=== PATIENT | female | born 1930 | race Caucasian/White ===

== ENCOUNTER 2017-12-03 09:04 | Emergency (ER) | payer OTHER ==
[2017-12-03 09:08] VITALS: BMI 29.2
--- NOTE | 2017-12-03 09:11 | PDOC ---
History of Present Illness - General Chief Complaint: Rash Stated Complaint: RASH Time Seen by Provider: 12/03/17 09:11 History Source: Patient Exam Limitations: No Limitations - History of Present Illness Initial Comments: 12/03/17 09:11 Ms Hinton is an 87myo F who presents to the ER with a complaint of rash This Rash has been present for the past 4 days. She first noticed it on her left forearm. Since then she's noticed that on her chin, lip, right cheek. No difficulty swallowing, no wheezing. No shortness of breath. Patient has a prior history of ALLERGIC reaction to penicillin, she did not take this today. She has no ALLERGIES to foods Patient has used no new soaps, detergent, lotions. The only new food she can recall is Tong and Cheetos approximately 5-6 days ago PMH-htn, hyperparathyroid dz, congenital heart defect, tia, HLP PSH- R knee replacement Social- . Denies alcohol, rec drugs, tobacco Famhx- Dad- Leukemia. Mom- Lung cancer Social history - denies tobacco use, drug use GENERAL/CONSTITUTIONAL: No: fever, chills, weakness, loss of appetite. HEAD, EYES, EARS, NOSE AND THROAT: No: change in vision, ear pain, discharge, sore throat, throat swelling. CARDIOVASCULAR: No: chest pain, lightheadedness, palpitations, syncope RESPIRATORY: No: cough, shortness of breath, wheezing, hemoptysis, stridor. GASTROINTESTINAL: No: nausea, vomiting, diarrhea, abdominal cramping, rectal bleeding, constipation. GENITOURINARY: No: dysuria, hematuria, frequency, urgency, flank pain. MUSCULOSKELETAL: No: back pain, neck pain, joint pain, muscle swelling or pain SKIN : Yesd: rash No: lesions, pallor, rash or easy bruising. NEUROLOGIC: No: headache, vertigo, paresthesias, weakness ENDOCRINE: No: unexplained weight gain or loss HEMATOLOGIC/LYMPHATIC: No: anemia, easy bleeding, swelling nodes. GENERAL: The patient is in no acute distress. HEAD: Normal with no signs of trauma. EYES: PERRLA, EOMI, sclera anicteric, conjunctiva clear. ENT:Uvula midline and non edematous Moist mucous membranes. NECK: Normal range of motion, supple without lymphadenopathy, JVD, or masses. LUNGS: Breath sounds equal, clear to auscultation bilaterally. No wheezes HEART:Regular rate and rhythm, normal S1 and S2 without murmur, rub or gallop. ABDOMEN: Soft, nontender, normoactive bowel sounds. EXTREMITIES: Normal range of motion, no edema. No clubbing or cyanosis. No erythema, or tenderness. NEUROLOGICAL: Cranial nerves II through XII grossly intact. Normal speech. No focal neurological deficits. MUSCULOSKELETAL: Back non-tender to palpation, no CVA tenderness SKIN: Urticarial lesions noted chin and lower lip, right cheek left volar surface of the forearm No pustules No vesicles 12/03/17 09:12 Past History - Past Medical History Allergies/Adverse Reactions: Allergies Allergy/AdvReac Type Severity Reaction Status Date / Time Penicillins Allergy Verified 12/03/17 09:12 Home Medications: Ambulatory Orders Amlodipine Besylate [Norvasc -] 5 mg PO DAILY 08/01/14 Atorvastatin Ca [Lipitor] 20 mg PO HS 08/01/14 Metoprolol Succinate [Toprol XL -] 25 mg PO BID 08/01/14 Cholecalciferol (Vitamin D3) [Vitamin D3] 2,000 unit PO DAILY tablet 11/13/15 Cardiac Disorders: Yes CVA: Yes (TIA 1994) COPD: No DVT: No HTN: Yes Thyroid Disease: Yes - Suicide/Smoking/Psychosocial Hx Smoking History: Never smoked Have you smoked in the past 12 months: No Hx Alcohol Use: No Drug/Substance Use Hx: No Substance Use Type: None *Physical Exam - Vital Signs Last Vital Signs Temp Pulse Resp BP Pulse Ox 0/0 12/03/17 09:05 Medical Decision Making - Medical Decision Making 12/03/17 09:16 Pt presents with what appears to be an urticarial rash Has not taken Benadryl by mouth only topical benadryl Recommend: Medrol dose pack Benadryl Follow up with Security Team Lead and PMD *DC/Admit/Observation/Transfer Diagnosis at time of Disposition: Allergic reaction Qualifiers: Encounter type: initial encounter Qualified Code(s): T78.40XA - Allergy, unspecified, initial encounter - Discharge Dispostion Disposition: HOME Condition at time of disposition: Stable Decision to Admit order: No - Referrals Referrals: Aguila Lisa MD [Staff Physician] - - Patient Instructions Printed Discharge Instructions: DI for General Allergic Reactions Additional Instructions: Thank you for coming into the emergency department today. Please be sure to follow up with the insurance agency manager ([facility]) (, any primary care physician. You can take Benadryl 12.5 mg every 8 hours for itching. Please note, you may see rashes in other parts of your body Please take Medrol Dosepak as prescribed. Please monitor for difficulty swallowing, difficulty breathing, any progression that concerns you. Please feel free to return to the emergency department for any other concerns or complaints. For now, please avoid mangoes and Cheetos - Post Discharge Activity
[2017-12-03 09:16] VITALS: BP 140/96; PULSE 79; TEMP 98
== END 2017-12-03 09:35 | disposition home or self-care (01) ==
LOC: FER 09:04
DX: T78.40XA Allergy, unspecified, initial encounter (principal); I10 Essential (primary) hypertension; E78.5 Hyperlipidemia, unspecified; Z86.73 Personal history of transient ischemic attack (TIA), and cerebral infarction without residual deficits
CPT/HCPCS: 99281-25

== ENCOUNTER 2018-05-07 08:28 | Emergency (ER) | payer OTHER ==
[2018-05-07 08:45] VITALS: BP 150/102; PULSE 96; TEMP 98.3; BMI 30.2
[2018-05-07] MEDS ORDERED: ACETAMINOPHEN 1000 MG/100 ML VIAL (NON FORMULARY) IVPB ONE (08:49)
[2018-05-07] MEDS ORDERED: ACETAMINOPHEN INJECTION 100 ML IVPB ONE (08:58)
--- NOTE | 2018-05-07 09:32 | PDOC ---
History of Present Illness - General Chief Complaint: Pain Stated Complaint: RIGHT SHOULDER PAIN BANGED INTO DOOR JAM Time Seen by Provider: 05/07/18 08:38 - History of Present Illness Initial Comments: 05/07/18 09:39 88 years old past medical history significant for right total knee replacement, hypertension, hyperparathyroidism, PFO, TIA on Coumadin, hyperlipidemia normally ambulates with a walker was in the bathroom on [address] did not have her walker was unsteady and fell forward into the bathroom door. There was no new or different dizziness on headache chest pain shortness of breath she simply did not have her walker with her. Patient denies fever chills chest pain shortness of breath nausea vomiting diarrhea rashes bone spurs is new or different urinary symptoms. Past History - Past Medical History Allergies/Adverse Reactions: Allergies Allergy/AdvReac Type Severity Reaction Status Date / Time Penicillins Allergy Verified 05/07/18 08:31 Home Medications: Ambulatory Orders Amlodipine Besylate [Norvasc -] 5 mg PO DAILY 08/01/14 Metoprolol Succinate [Toprol XL -] 50 mg PO DAILY 08/01/14 Atorvastatin Ca [Lipitor] 20 mg PO HS 05/07/18 Tramadol HCl 50 mg PO BID #6 tablet MDD 2 05/07/18 Cardiac Disorders: Yes CVA: Yes (TIA 1994) COPD: No DVT: No HTN: Yes Thyroid Disease: Yes - Suicide/Smoking/Psychosocial Hx Smoking History: Former smoker Have you smoked in the past 12 months: No If you are a former smoker, when did you quit?: 50 YEARS AGO Information on smoking cessation initiated: No Hx Alcohol Use: No Drug/Substance Use Hx: No Substance Use Type: None Review of Systems - Review of Systems Comments:: 05/07/18 09:40 ROS: A complete review of 10 out of 10 review of systems is taken and is negative apart from what is previously mentioned below and in the HPI. *Physical Exam - Vital Signs Last Vital Signs Temp Pulse Resp BP Pulse Ox 98.3 F 96 H 20 150/102 H 97 05/07/18 08:30 05/07/18 08:30 05/07/18 08:30 05/07/18 08:30 05/07/18 08:30 - Physical Exam Comments: 05/07/18 09:40 Vitals: Triage Vital signs reviewed General Appearance: no acute distress, well nourished well developed, Head: Atraumatic, Cardiac: Regular rate and rhythym, no murmurs, no rubs, no gallops, Lungs: Clear to auscultation bilateral, good air movement bilaterally, Abdomen: Soft, non distended, normal bowel sounds, non tender to palpation Extremities: Decreased range of motion to right shoulder swelling with deformity to right shoulder. Neurovascularly intact distally. Skin: Warm and dry, no rashes or lesions, no rash, no petechiae Neuro: AOX3; Cranial Nerves 2-12 grossly intact, Strength intact to all extremities, Sensation intact to all extremities, Psych: normal mood, normal affect Moderate Sedation - Procedure Monitoring Vital Signs: Procedure Monitoring Vital Signs Temperature 98.3 F 05/07/18 08:30 Pulse Rate 96 H 05/07/18 08:30 Respiratory Rate 20 05/07/18 08:30 Blood Pressure 150/102 H 05/07/18 08:30 O2 Sat by Pulse Oximetry (%) 97 05/07/18 08:30 ED Treatment Course - LABORATORY CBC & Chemistry Diagram: 05/07/18 09:34 05/07/18 09:55 - RADIOLOGY Radiology Studies Ordered: Category Date Time Status FEMUR-RIGHT [RAD] Stat Radiology 05/07/18 08:48 Ordered KNEE 3 POS-RIGHT [RAD] Stat Radiology 05/07/18 08:48 Ordered SHOULDER-RIGHT [RAD] Stat Radiology 05/07/18 08:48 Ordered Medical Decision Making - Medical Decision Making 05/07/18 09:41 80 years old with chemical slip no head trauma hit her shoulder with deformity Also complaining of some mild leg pain but full range of motion We'll x-ray pain meds observe and reassess. 05/07/18 10:51 Impacted right humeral head fracture. Nonsurgical. Patient placed in sling and We'll follow up with orthopedics substance abuse services director consuled. Patient lives with daughter has a safe home situation for the short term however, patient normally ambulates with a walker. Given her humeral head fracture she will no longer be able to ambulate with a walker. This will leave the patient as a very high fall risk. She will require visiting nurse services to aid in her ambulation to ensure no additional injuries occur secondary to her humeral head fracture and her baseline gait instability She will follow-up with orthopedics as an outpatient. Findings, the need for follow-up and strict return instructions discussed with patient. 05/07/18 11:23 *DC/Admit/Observation/Transfer Diagnosis at time of Disposition: Humeral head fracture Qualifiers: Encounter type: initial encounter Fracture type: closed Laterality: right Qualified Code(s): S42.291A - Other displaced fracture of upper end of right humerus, initial encounter for closed fracture - Discharge Dispostion Disposition: HOME Condition at time of disposition: Stable Decision to Admit order: No - Prescriptions Prescriptions: Tramadol HCl 50 mg PO BID #6 tablet MDD 2 - Referrals Referrals: Lior Foster MD [Staff Physician] - - Patient Instructions Printed Discharge Instructions: How to Use a Sling, DI for Shoulder Fracture Additional Instructions: Keep arm in sling. Perform range of motion exercises daily. Ice 20 minutes on 20 minutes off. Take Tylenol as directed on package as needed for pain. Tramadol for more severe pain. If requiring tramadol please take with an over- the-counter stool softener as directed on package. Follow-up with orthopedics within 1 week. Return to emergency department for any severe worsening symptoms or for any concerns. - Post Discharge Activity
[2018-05-07 09:46] LABS: HEMOGLOBIN 13.4 GM/dl (10.7-15.3)
[2018-05-07 09:50] LABS: INR 2.88 (0.82-1.09); PROTHROMBIN TIME (PATIENT) 31.6 SEC (10.2-13.0)
[2018-05-07 09:52] LABS: HEMATOCRIT 40.4 % (32.4-45.2); MCH 30.4 pg (25.7-33.7); MCHC 33.1 g/dl (32.0-36.0); MEAN CELL VOLUME 91.7 fl (80-96); MEAN PLT VOLUME 9.9 fl (7.5-11.1); PLATELET COUNT 205 K/MM3 (134-434); RBC 4.41 M/mm3 (3.60-5.2); RDW 14.1 % (11.6-15.6); WHITE BLOOD COUNT 9.5 K/mm3 (4.0-10.8)
[2018-05-07 10:43] LABS: ALBUMIN 3.5 g/dl (3.5-5.0); ALK PHOS 98 U/L (32-92); ANION GAP 7 MMOL/L (8-16); BILIRUBIN,TOTAL 1.1 mg/dl (0.2-1.0); BLOOD UREA NITROGEN 14 mg/dl (7-18); CHLORIDE 103 mmol/L (98-107); CO2 24 mmol/L (22-28); CREATININE 0.7 mg/dl (0.6-1.3); GLUCOSE,RANDOM 112 mg/dl (74-106); POTASSIUM 3.9 mmol/L (3.5-5.1); SGOT/AST 15 U/L (10-42); SGPT/ALT 11 U/L (10-40); SODIUM 134 mmol/L (136-145); TOT PROT 6.3 g/dl (6.4-8.3)
[2018-05-07 11:11] LABS: PLATELET ESTIMATE ADEQUATE
== END 2018-05-07 11:15 | disposition home or self-care (01) ==
LOC: FER 08:28
PROC: 3E033NZ Introduction of Analgesics, Hypnotics, Sedatives into Peripheral Vein, Percutaneous Approach (ICD-10-PCS; principal; 2018-05-07)
DX: S42.291A Other displaced fracture of upper end of right humerus, initial encounter for closed fracture (principal); W18.39XA Other fall on same level, initial encounter; Y93.89 Activity, other specified; Y92.099 Unspecified place in other non-institutional residence as the place of occurrence of the external cause; I10 Essential (primary) hypertension; Z86.73 Personal history of transient ischemic attack (TIA), and cerebral infarction without residual deficits; E78.5 Hyperlipidemia, unspecified; Z79.01 Long term (current) use of anticoagulants; Z99.89 Dependence on other enabling machines and devices
CPT/HCPCS: 36415; 73030-TC-RT-FY; 73552-TC-RT-FY; 73562-TC-RT-FY; 80053; 85025; 85610; 99283-25; J0131